=== PATIENT | female | born 1995 | race Two or more races ===

== ENCOUNTER 2021-12-06 11:21 | Outpatient (CLI) | payer OTHER | END 2021-12-06 11:25 | disposition home or self-care (01) | LOC: LAB 11:21 | PROVIDERS: ATTEND Internal Medicine | DX: Z34.90 Encounter for supervision of normal pregnancy, unspecified, unspecified trimester (principal) ==

== ENCOUNTER 2021-12-11 10:47 | Outpatient (CLI) | payer OTHER | END 2021-12-11 10:48 | disposition home or self-care (01) | LOC: LAB 10:47 | DX: E03.9 Hypothyroidism, unspecified (principal) ==

== ENCOUNTER 2021-12-14 07:42 | Outpatient (CLI) | payer OTHER | END 2021-12-14 07:57 | disposition home or self-care (01) | LOC: LAB 07:42 | PROVIDERS: ATTEND Specialist | DX: Z34.00 Encounter for supervision of normal first pregnancy, unspecified trimester (principal) ==

== ENCOUNTER 2022-01-01 07:46 | Outpatient (CLI) | payer OTHER | END 2022-01-01 07:52 | disposition home or self-care (01) | LOC: LAB 07:46 | PROVIDERS: ATTEND Internal Medicine | DX: E03.9 Hypothyroidism, unspecified (principal) ==

== ENCOUNTER 2022-01-25 08:15 | Outpatient (CLI) | payer OTHER | END 2022-01-25 09:42 | disposition home or self-care (01) | LOC: PRENATAL 08:15 | PROVIDERS: ATTEND Obstetrics & Gynecology Maternal & Fetal Medicine | DX: O36.80X0 Pregnancy with inconclusive fetal viability, not applicable or unspecified (principal); Z36 Encounter for antenatal screening of mother; O99.280 Endocrine, nutritional and metabolic diseases complicating pregnancy, unspecified trimester ==

== ENCOUNTER 2022-02-19 11:01 | Outpatient (CLI) | payer OTHER | END 2022-02-19 11:07 | disposition home or self-care (01) | LOC: LAB 11:01 | PROVIDERS: ATTEND Internal Medicine | DX: E03.9 Hypothyroidism, unspecified (principal) ==

== ENCOUNTER 2022-03-21 12:24 | Outpatient (CLI) | payer OTHER | END 2022-03-21 12:29 | disposition home or self-care (01) | LOC: LAB 12:24 | PROVIDERS: ATTEND Obstetrics & Gynecology Maternal & Fetal Medicine | DX: O99.280 Endocrine, nutritional and metabolic diseases complicating pregnancy, unspecified trimester (principal) ==

== ENCOUNTER 2022-03-22 07:57 | Outpatient (CLI) | payer OTHER | END 2022-03-22 09:06 | disposition home or self-care (01) | LOC: PRENATAL 07:57 | PROVIDERS: ATTEND Obstetrics & Gynecology Maternal & Fetal Medicine | DX: O35.9XX0 Maternal care for (suspected) fetal abnormality and damage, unspecified, not applicable or unspecified (principal); O35.3XX0 Maternal care for (suspected) damage to fetus from viral disease in mother, not applicable or unspecified; O99.280 Endocrine, nutritional and metabolic diseases complicating pregnancy, unspecified trimester; Z3A.20 20 weeks gestation of pregnancy ==

== ENCOUNTER 2022-04-26 14:58 | Outpatient (CLI) | payer OTHER | END 2022-04-26 16:25 | disposition home or self-care (01) | LOC: NST 14:58 | PROVIDERS: ATTEND Specialist | DX: Z34.82 Encounter for supervision of other normal pregnancy, second trimester (principal) ==

== ENCOUNTER 2022-04-30 07:16 | Outpatient (CLI) | payer OTHER | END 2022-04-30 07:17 | disposition home or self-care (01) | LOC: LAB 07:16 | PROVIDERS: ATTEND Specialist | DX: Z34.00 Encounter for supervision of normal first pregnancy, unspecified trimester (principal) ==

== ENCOUNTER 2022-07-02 12:09 | Outpatient (CLI) | payer OTHER | END 2022-07-02 12:15 | disposition home or self-care (01) | LOC: LAB 12:09 | PROVIDERS: ATTEND Specialist | DX: Z34.93 Encounter for supervision of normal pregnancy, unspecified, third trimester (principal); E03.9 Hypothyroidism, unspecified ==

== ENCOUNTER → 2022-07-03 11:36 | Outpatient (CLI) | payer OTHER | END | disposition home or self-care (01) | LOC: LAB 11:36 | PROVIDERS: ATTEND Specialist | DX: Z34.00 Encounter for supervision of normal first pregnancy, unspecified trimester (principal) ==

== ENCOUNTER 2022-07-26 12:26 | Inpatient (IN) | payer OTHER ==
[~2022-07-26] VITALS: Ht 157.5 cm; Wt 85.3 kg
[2022-08-02] MEDS ORDERED: SYNTHROID50 MCG PO (05:42)
[2022-08-02] MEDS ORDERED: SYNTHROID175 MCG PO (05:45)
== END 2022-08-04 12:45 | disposition home or self-care (01) | DRG 807 ==
LOC: LDR 08-02 05:21 → OB/GYN 08-02 05:21
PROVIDERS: ADMIT Specialist; ATTEND Specialist
PROC: 10E0XZZ Delivery of Products of Conception, External Approach (ICD-10-PCS; principal; 2022-08-02)
PROC: 3E033VJ Introduction of Other Hormone into Peripheral Vein, Percutaneous Approach (ICD-10-PCS; 2022-08-02)
PROC: 3E0P7VZ Introduction of Hormone into Female Reproductive, Via Natural or Artificial Opening (ICD-10-PCS; 2022-08-02)
PROC: 4A1HXCZ Monitoring of Products of Conception, Cardiac Rate, External Approach (ICD-10-PCS; 2022-08-02)
DX: O80 Encounter for full-term uncomplicated delivery (principal); Z37.0 Single live birth; Z3A.39 39 weeks gestation of pregnancy; Z20.822 Contact with and (suspected) exposure to COVID-19

== ENCOUNTER 2022-12-10 12:41 | Outpatient (CLI) | payer OTHER ==
[~2022-12-10 12:41] MED LIST: SYNTHROID175 MCG PO; SYNTHROID50 MCG PO
== END 2022-12-10 12:43 | disposition home or self-care (01) ==
LOC: LAB 12:41
DX: E03.9 Hypothyroidism, unspecified (principal)

== ENCOUNTER 2023-01-11 10:30 | Outpatient (CLI) | payer OTHER | END 2023-01-11 10:40 | disposition home or self-care (01) | LOC: PPH VACUNA 10:30 | PROVIDERS: ATTEND Emergency Medicine Pediatric Emergency Medicine | DX: Z23 Encounter for immunization (principal) | CPT/HCPCS: 90686; G0008 ==